=== PATIENT | male | born 1980 | race Caucasian/White ===

== ENCOUNTER 2017-11-01 14:45 | Emergency (ER) | payer OTHER ==
[~2017-11-01] VITALS: Ht 179.1 cm; Wt 79.7 kg
[2017-11-01 14:49] VITALS: BP 111/63; PULSE 77; TEMP 36.9; O2SAT 99; Ht 179.1 cm; Wt 79.7 kg
[2017-11-01] MEDS ORDERED: AMOX875T PO (15:07)
--- NOTE | 2017-11-01 15:07 | EMERGENCY ROOM VISIT NOTE ---
ED Visit Note First contact with patient: 14:56 CHIEF COMPLAINT: Cat bite HISTORY OF PRESENT ILLNESS: This 37-year-old male patient presents to the emergency department, ambulatory, approximately 4 hours after they sustained a cat bite to the bilateral hands, specifically the left index finger which is causing the most discomfort. The patient states he recently moved the cat from one place to another yesterday. This morning, the patient attempted to lift up the cat (which belongs to his family) to feed it, and states the cat became agitated and bit him multiple times, but worse on the finger. The patient reports that the animal's immunizations are up-to-date. The patient complains of pain and swelling of the left index finger and throbbing, 4/10 pain at the site of the injury. Pain is worse with movement. Tetanus status is up to date. The Last rabies vaccination was 1 year ago. REVIEW OF SYSTEMS: A 6 system review of systems was completed with positives and pertinent negatives listed in the HPI. ALLERGIES: Latex, adhesive MEDICATIONS: Wellbutrin, trazodone, meclizine PMH: Depression, vertigo PHYSICAL EXAM: Vital Signs reviewed, see Nurse's notes, vital signs stable. GENERAL: This is a 37-year-old white male, awake, alert, well appearing, no acute distress. Non toxic in appearance. MUSCULOSKELETAL: Examination of the bilateral hands and arms reveals multiple small puncture type of wounds. The deepest wound is on the DIP joint of the left index finger. There is no active drainage. There is swelling on inspection. Palpation of the DIP joint reveals moderate tenderness. No significant crepitus or warmth noted. No joint space, tendon, or vascular involvement. Distal pulses intact. SKIN: No signs of infection. NEURO: No sensory or motor deficits noted over all dermatomes and myotomes tested. EMERGENCY DEPARTMENT COURSE AND DECISION MAKING: I examined the patient. The patient presented with an isolated bite wound as described as above. By the history, there is no concern for rabies exposure. No signs of infection on examination, however because this is a cat bite, the patient will be treated with antibiotics. He was given his first dose of Augmentin here in the emergency department. I spent a significant amount of time discussing discharge instructions and the importance of consistent use of antibiotics. I did discuss proper pain management [id number]. Department of Health paperwork completed. The patient verbalized understanding. All questions answered to the patient's satisfaction. Discharge instructions reviewed, patient was discharged home in good condition. I attest that I have personally reviewed the patient's current medication list. Patient was found to have normal blood pressure on screening and does not require follow-up. Differential diagnosis includes animal bite, insect bite, cellulitis, abscess, septic joint, fracture, soft tissue injury, malignancy, and others DIAGNOSIS: Cat bite The chart was completed utilizing [employer] voice recognition software. Grammatical errors, random word insertions, pronoun errors, and incomplete sentences are an occasional consequence of this system due to software limitations, ambient noise, and hardware issues. Any formal questions or concerns about the content, text, or information contained within the body of this dictation should be directly addressed to the provider for clarification. Current/Historical Medications Scheduled Amoxicillin & Pot Clavulanate (Augmentin 875-125 mg), 1 TAB PO BID Bupropion (Wellbutrin Sr), 150 MG PO BID Meclizine Hcl (Meclizine Hcl), 1 TAB PO DAILY Trazodone Hcl (Trazodone), 100 MG PO HS Allergies Coded Allergies: No Known Allergies (Unverified , 11/01/17) Vital Signs Date Time Temp Pulse Resp B/P (MAP) Pulse Ox O2 Delivery O2 Flow Rate FiO2 11/01/17 14:49 36.9 77 18 111/63 99 Room Air Medications Administered Medications (Trade) Dose Ordered Sig/Ying Route Start Time Stop Time Status Last Admin Dose Admin Amoxicillin/ Clavulanate Potassium (Augmentin Tab) 875 mg ONE ONCE PO 11/01/17 15:15 11/01/17 15:16 DC 11/01/17 15:15 875 MG Departure Information Impression Primary Impression: Cat bite Dispostion Home / Self-Care Condition GOOD Prescriptions Amoxicillin & Pot Clavulanate (Augmentin 875-125 mg) 1 Tab Tab 1 TAB PO BID for 10 Days, #19 TAB Prov: Teena Montesinos PA-C 11/01/17 Referrals Kishore Hernandez M.D. (PCP) Patient Instructions ED Bite Cat, My [facility] Additional Instructions You were seen in the emergency department today for a cat bite. As discussed, it is IMPERATIVE that you take ALL antibiotics as prescribed, as these bites can become infected very quickly. Amoxicillin Clavulanate (Augmentin) 875mg: Take one pill twice daily for 10 days for your infection. All antibiotics can cause diarrhea. If this occurs and you feel worse or it does not resolve in 1-2 days follow up with your doctor or return to the Emergency Department as this could be signs of serious underlying problems. Any medication can cause an allergic reaction, stop the pills immediately and return to the ER for rash, hives, breathing difficulties, or swelling. Ibuprofen(Motrin, Advil) may be used for fever or pain. Use 600mg every six hours as needed. Take with food. Avoid using more than 2400mg in a 24 hour period. Do not use 2400mg per day for more than three consecutive days without physician direction. Prolonged inappropriate use can lead to stomach upset or ulcers. (AND/OR) Acetaminophen(Tylenol) may be used for fever or pain. Use 1000mg every six hours as needed. Avoid using more than 3000mg in a 24 hour period. *Alternate these medications every 3-4 hours for increased pain control. Follow-up with your PCP or back in the ED on Friday for re-evaluation of the wound. Return immediately for any significantly worsening pain, swelling, redness, drainage, fevers, chills, nausea, vomiting, body aches, chest pain, dyspnea, or other concerning symptoms. Problem Qualifiers Primary Impression: Cat bite Encounter type: initial encounter Qualified Codes: W55.01XA - Bitten by cat , initial encounter
[2017-11-01] MEDS ORDERED: AMOXICILLIN/CLAVULANATE TAB 875 MG TAB PO ONE (15:15)
[2017-11-01] MEDS ORDERED: TRAZ100T29 PO (15:18)
[2017-11-01] MEDS ORDERED: BUPR-79 PO (15:18)
[2017-11-01] MEDS ORDERED: MECL1TAB42 PO (15:18)
== END 2017-11-01 15:31 | disposition home or self-care (01) ==
LOC: C.EDB 14:47 → C.EDD 15:31
DX: S61.251A Open bite of left index finger without damage to nail, initial encounter (principal); W55.01XA Bitten by cat, initial encounter; Z91.040 Latex allergy status; Z91.048 Other nonmedicinal substance allergy status; Z79.899 Other long term (current) drug therapy; F32.9 Major depressive disorder, single episode, unspecified; R42 Dizziness and giddiness